=== PATIENT | female | born 1935 | race Asian ===

== ENCOUNTER 2017-03-06 09:17 | Emergency (ER) | payer MEDICARE, OTHER ==
[~2017-03-06] VITALS: Ht 147.3 cm; Wt 52.2 kg
[2017-03-06 11:44] LABS: microscopic required? YES; urine erythrocyte 1+ (NEGATIVE)
[2017-03-06 13:43] VITALS: BP 113/62
== END 2017-03-06 13:50 | disposition home or self-care (01) ==
LOC: ED 09:17
PROVIDERS: Emergency Medicine
DX: M54.16 Radiculopathy, lumbar region (principal); I10 Essential (primary) hypertension; M51.36 Other intervertebral disc degeneration, lumbar region; E11.9 Type 2 diabetes mellitus without complications; E78.00 Pure hypercholesterolemia, unspecified; E03.9 Hypothyroidism, unspecified; M19.90 Unspecified osteoarthritis, unspecified site; Z98.890 Other specified postprocedural states
CPT/HCPCS: J1100; J1885; J3010

== ENCOUNTER 2017-05-13 12:31 | Inpatient (IN) | payer MEDICAID, MEDICARE, OTHER ==
[~2017-05-13] VITALS: Ht 149.9 cm; Wt 51.0 kg
[2017-05-13 17:20] LABS: BASOPHIL % 0.9 % (0-2); PLATELET COUNT 153 x10^3mcL (130-400)
[2017-05-13 17:22] LABS: RED CELL DISTRIBUTION WIDTH 15.1 % (11.5-14.5)
[2017-05-13 17:25] LABS: CARBON DIOXIDE 24.7 mmol/L (21-32); CHLORIDE SERUM 105 mmol/L (98-107); CREATININE SERUM 1.2 mg/dL (0.6-1.0); GLUCOSE SERUM 88 mg/dL (74-106); POTASSIUM SERUM 3.8 mmol/L (3.5-5.1); SODIUM SERUM 142 mmol/L (136-145)
[2017-05-13 17:30] LABS: ALBUMIN 3.8 g/dL (3.4-5.0); ALKALINE PHOSPHATASE 37 U/L (46-116); ALT/SGPT 50 U/L (14-59); AMYLASE 98 U/L (25-115); AST/SGOT 45 U/L (15-37); BILIRUBIN TOTAL 0.74 mg/dL (0.20-1.00); LIPASE 350 IU/L (73-393); TOTAL PROTEIN, SERUM 7.7 g/dL (6.4-8.2)
[2017-05-13] MEDS ORDERED: CALCIUM 600600 M3 PO (18:13)
[2017-05-13] MEDS ORDERED: TAMOXIFEN CITRA20 MG PO (18:14)
[2017-05-13] MEDS ORDERED: ALLOPURINOL100 MG PO (18:14)
[2017-05-13] MEDS ORDERED: LEVOTHYROXIN0.075 M2 PO (18:15)
[2017-05-13] MEDS ORDERED: ZESTRIL20 MG PO (18:15)
[2017-05-13] MEDS ORDERED: TOPROL XL100 MG PO (18:16)
[2017-05-13] MEDS ORDERED: TRAMADOL HCL50 MG PO (18:16)
[2017-05-13] MEDS ORDERED: ZOCOR20 MG PO (18:17)
[2017-05-13] MEDS ORDERED: BAYER ASPIRIN R81 MG PO (18:17)
[2017-05-13] MEDS ORDERED: THE MEDICINE S400 I1 PO (18:19)
[2017-05-13 18:56] LABS: MAGNESIUM 1.6 mg/dL (1.8-2.4); PHOSPHOROUS 3.6 mg/dL (2.5-4.9)
[2017-05-13 19:05] LABS: T3 TOTAL 0.68 ng/mL
[2017-05-13 19:19] LABS: FREE T4 1.66 ng/dL (0.76-1.46)
[2017-05-13 19:26] LABS: CHOLESTEROL/HDL RATIO 1.9; FREE THYROXINE INDEX 5.3 ug/dL (1.4-4.5); T4(THYROXINE) 13.5 ug/dL (4.7-13.3)
[2017-05-13 20:40] VITALS: BP 133/64
[2017-05-13 20:44] VITALS: Ht 149.9 cm; Wt 51.0 kg
[2017-05-14 05:47] VITALS: BP 124/56
[2017-05-14 05:55] LABS: microscopic required? YES; urine erythrocyte TRACE (NEGATIVE)
[2017-05-14 06:44] LABS: CALCIUM 7.8 mg/dL (8.5-10.1); CARBON DIOXIDE 21.6 mmol/L (21-32); CHLORIDE SERUM 111 mmol/L (98-107); CREATININE SERUM 1.3 mg/dL (0.6-1.0); GLUCOSE SERUM 92 mg/dL (74-106); MAGNESIUM 1.3 mg/dL (1.8-2.4); PHOSPHOROUS 2.1 mg/dL (2.5-4.9); SODIUM SERUM 144 mmol/L (136-145)
[2017-05-14 06:50] LABS: BASOPHIL % 0.3 % (0-2)
[2017-05-14 06:59] LABS: PLATELET COUNT 125 x10^3mcL (130-400); RED CELL DISTRIBUTION WIDTH 14.8 % (11.5-14.5)
[2017-05-14 10:29] VITALS: BP 120/57
[2017-05-14 13:44] VITALS: BP 117/42
[2017-05-14 16:50] LABS: IRON 18 ug/dL (50-170); TOTAL IRON BINDING CAPACITY 197 ug/dL (250-450)
[2017-05-14 16:57] VITALS: BP 108/40
[2017-05-14 17:01] LABS: RED BLOOD CELLS 3.01 M/mm3 (4.10-5.10)
[2017-05-14 21:13] VITALS: BP 125/50
[2017-05-15 05:44] VITALS: BP 125/61
[2017-05-15 06:18] LABS: BASOPHIL % 0.6 % (0-2)
[2017-05-15 06:26] LABS: CALCIUM 7.4 mg/dL (8.5-10.1); CARBON DIOXIDE 21.8 mmol/L (21-32); CHLORIDE SERUM 117 mmol/L (98-107); GLUCOSE SERUM 154 mg/dL (74-106); MAGNESIUM 2.1 mg/dL (1.8-2.4); PHOSPHOROUS 1.7 mg/dL (2.5-4.9); POTASSIUM SERUM 3.7 mmol/L (3.5-5.1); SODIUM SERUM 147 mmol/L (136-145)
[2017-05-15 07:37] LABS: PLATELET COUNT 129 x10^3mcL (130-400); RED CELL DISTRIBUTION WIDTH 14.7 % (11.5-14.5)
[2017-05-15 09:59] VITALS: BP 123/54
[2017-05-15 13:39] VITALS: BP 114/43
[2017-05-15] MEDS ORDERED: MOT800 PO (15:47)
[2017-05-15 17:06] VITALS: BP 122/54
[2017-05-15 17:37] VITALS: BP 122/54
[2017-05-15] MEDS ORDERED: LEVOFLOXACIN750 M1 PO (20:35)
[2017-05-15] MEDS ORDERED: FLA500 PO (20:39)
[2017-05-15] MEDS ORDERED: LAC PO (20:39)
== END 2017-05-15 17:58 | disposition home or self-care (01) | DRG 244 ==
LOC: ED 12:31 → DU 18:01 → MU 18:01 → DU 20:10 → MU 05-15 06:45
PROVIDERS: Emergency Medicine; ADMIT Family Medicine
DX: K57.32 Diverticulitis of large intestine without perforation or abscess without bleeding (principal); N17.0 Acute kidney failure with tubular necrosis; I50.43 Acute on chronic combined systolic (congestive) and diastolic (congestive) heart failure; E87.0 Hyperosmolality and hypernatremia; E11.9 Type 2 diabetes mellitus without complications; D64.9 Anemia, unspecified; E03.9 Hypothyroidism, unspecified; Z88.3 Allergy status to other anti-infective agents; E83.42 Hypomagnesemia; N28.89 Other specified disorders of kidney and ureter; Z85.3 Personal history of malignant neoplasm of breast; I25.2 Old myocardial infarction; M19.90 Unspecified osteoarthritis, unspecified site; I11.0 Hypertensive heart disease with heart failure; E83.39 Other disorders of phosphorus metabolism
CPT/HCPCS: 82962; 83880; 84439; J1200; J1885; J1956; J3475; J3490; J7030; J7042; Q0092